=== PATIENT | female | born 1940 | race Caucasian/White ===

== ENCOUNTER 2017-10-04 00:46 | Inpatient (IN) | payer MEDICARE, OTHER ==
[~2017-10-04] VITALS: Ht 162.6 cm; Wt 60.3 kg
[~2017-10-04 00:46] MED LIST: (None)10 MG OR; ALPHAGAN IR; ASPIRIN325 MG OR; BUMETANIDE1 MG PO; BUTALBITAL/APAP1 CAP PO; CEFUROXIME AXE500 MG PO; CITRACAL + D3 MAXIMU PO; CLINORIL150 MG OR; COSOPT1 ML OP; D31000 UNIT PO; DIGOXIN0.25 MG PO; EFFEXOR37.5 MG PO; ELIQUIS5 MG PO; FOLIC ACID1 MG PO; LEVETIRACETAM1000 MG PO; LEVETIRACETAM500 M1 PO; LEVOTHROID88 MCG PO; LEVOTHYROXIN88 MC1 PO; LORTAB 5/3255 MG PO; LUMIGAN0.01 % OP; MEGESTROL AC20 MG PO; METOPROL TAR25 MG PO; OMEPRAZOLE20 M2 PO; OMEPRAZOLE20 MG PO; SYNTHROID100 MCG OR; SYNTHROID100 MCG PO; TIMOLOL 0.25%5 ML OP; TRAVATAN Z0.004 % OP; VENTOLIN HF1 IN; VITAMIN B-12500 MCG PO
--- NOTE | 2017-10-04 00:48 | NUR ---
PATIENT TO ROOM 12 VIA EMS STRETCHER. PATIENT UNDRESSED INTO A GOWN. TRIAGE COMPLETED AT BEDSIDE. AWAITING MD NOONAN.
[2017-10-04] MEDS ORDERED: ADLT ASA LOW81 MG PO (01:24)
[2017-10-04] MEDS ORDERED: ZONEGRAN100 M1 PO (01:24)
[2017-10-04] MEDS ORDERED: LEVOTHYROXIN88 MC1 PO (01:25)
[2017-10-04] MEDS ORDERED: ZESTRIL10 MG PO (01:26)
[2017-10-04] MEDS ORDERED: REMERON15 MG PO (01:27)
[2017-10-04] MEDS ORDERED: LEVETIRACETAM500 MG PO (01:27)
[2017-10-04] MEDS ORDERED: ZYLOPRIM100 MG PO (01:28)
[2017-10-04] MEDS ORDERED: FOLIC ACID1 MG PO (01:28)
[2017-10-04] MEDS ORDERED: TRAZODONE50 MG PO (01:29)
[2017-10-04] MEDS ORDERED: XALATAN 0.005%2.5 ML OU (01:29)
--- NOTE | 2017-10-04 01:33 | NUR ---
LABS DRAWN AND SENT, IV ESTABLISHED, MONITORING INITIATED. RTM OBTAINING ABG
[2017-10-04 01:54] LABS: HEMATOCRIT 26.8 % (37.0-47.0); HEMOGLOBIN 8.5 g/dl (12.0-16.0); IMMATURE GRANULOCYTES 0.3 % (0.0-1.0); MEAN CELL VOLUME 98.5 fL CALC (80.0-100.0); MEAN CORPUSCULAR HGB 31.3 pG CALC (26.0-32.0); MEAN CORPUSCULAR HGB CONC 31.7 g/L CALC (32.0-36.0); NEUT# 4.56 thou/uL (2.00-7.15); RED BLOOD COUNT 2.72 mill/uL (4.20-5.60); RED CELL DISTRI WIDTH 14.3 % (11.5-15.5)
[2017-10-04 02:01] LABS: ALBUMIN 3.9 g/dL (3.2-5.0); ALKALINE PHOSPHATASE 55 u/l (38-126); BILIRUBIN, TOTAL 0.6 mg/dL (0.0-1.4); BUN 68 mg/dL (8-23); CHLORIDE 118 mmol/l (95-108); SGOT/AST 25 u/l (9-36); SGPT/ALT 16 u/l (11-66); SODIUM 146 mmol/l (137-146); TOTAL PROTEIN 7.2 g/dL (6.3-8.2)
[2017-10-04 02:02] LABS: ANION GAP 22 (6-22 (CALC)); BUN/CREATININE RATIO 17 (12-20 (CALC)); GFR 11 ML/MIN (>=60 (CALC)); GFR FOR AFR.AMER. 13 ML/MIN (>=60 (CALC)); INFLUENZA A NONE DETECTED (NONE DETECT); INFLUENZA B NONE DETECTED (NONE DETECT); POTASSIUM 5.7 mmol/l (3.5-5.1)
[2017-10-04 02:03] LABS: CARBON DIOXIDE 12 mmol/l (22-30)
[2017-10-04 02:14] LABS: MYOGLOBIN 89 ng/mL (0 - 62)
--- NOTE | 2017-10-04 02:34 | NUR ---
DR DAILEY IN ROOM ATTEMPTING TO GET ABG
--- NOTE | 2017-10-04 03:20 | NUR ---
Admission Note Report Given to: KENAN CERVANTES Transported by: Wheelchair X Stretcher Transported with: X Nurse Transporter X Patent IV O2 X Benefit Specialist
--- NOTE | 2017-10-04 03:30 | NUR ---
PT ARRIVED TO FLOOR VIA STRETCHER WITH ER STAFF. PT ORIENTED TO ROOM AND CALL LIGHT SYSTEM. RESP EVEN AND UNLABORED; NO DISTRESS NOTED. TELE IN PLACE. ABD SOFT; HYPERACTIVE BOWEL SOUNDS NOTED. PEDAL PULSES PALPATED BIALT. IV RFA PATENT; FLUSHED WITHOUT DIFFICULTY. PT ALERT TO SELF; PT REORIENTED NEEDED. EXPRESSIVE APHASIA NOTED. PT ENCOURAGED TO CALL FOR ASSISTANCE; SAFETY PRECAUTIONS REINFORCED. BED ALARM IN PLACE FOR SAFETY. CALL LIGHT WITHIN REACH.
[2017-10-04 03:50] VITALS: BP 147/71
[2017-10-04 04:21] LABS: C. DIFFICILE TOXIN A&B NEGATIVE (NEGATIVE)
--- NOTE | 2017-10-04 04:30 | NUR ---
RESP EVEN AND UNLABORED; NO DISTRESS NOTED. TELE IN PLACE. BED ALARM IN PLACE FOR SAFETY. CALL LIGHT WITHIN REACH. IV PATENT; NO REDNESS OR EDEMA NOTED.
--- NOTE | 2017-10-04 07:00 | NUR ---
SHIFT CHANGE REPORT FROM BILLY, PT AWAKE AND ALERT SITTING UP ON BSC AT THIS TIME, DENIES PAIN, REFUSED MEAL STATING SHE IS TIRED AND WANTS TO RETURN TO BED, SETTLED IN BED, CALL BROWN IN REACH.
--- NOTE | 2017-10-04 07:15 | NUR ---
PT ASSISTED X2 TO BEDSIDE COMMODE PT HAD X2 MOD LOOSE BM, PT WAS ASKED IF SHE WANTS TO SIT UP IN THE RECLINER PT STATED THAT SHE'S VERY TIRED AND WANTS TO REST.
[2017-10-04 08:12] VITALS: BP 143/66
[2017-10-04 11:17] VITALS: BP 136/77
--- NOTE | 2017-10-04 12:00 | NUR ---
REPORT RECEIVED FROM JOHN IN ED, PT ARRIVED ON UNIT @ 1200, ALERT AND ORIENTED X 4, STANSFERRED FROM STRETCHER TO SCALE TO BED, ORIENTED TO ROOM AND CALL BROWN. DENIES PAIN/DISCOMFORT, WILL CONTINUE TO MONITOR.
--- NOTE | 2017-10-04 12:40 | NUR ---
PT LYING IN BED, REFUSING TO EAT STATING SHE IS UNABLE TO EAT SHE IS HAVING PAIN ALL OVER. DR TOLEDO NOTIFIED, WROTE ORDERS.
[2017-10-04 15:19] VITALS: BP 128/69
--- NOTE | 2017-10-04 19:20 | NUR ---
REPORT RECIEVED; PT WOKE TO SPEECH. RESP EVEN AND UNLABORED. PLAN OF CARE DISCUSSED. SAFETY PRECAUTIONS REINFORCED. CALL LIGHT WITHIN REACH.
[2017-10-04 20:09] LABS: URINE BILIRUBIN - DIPSTICK NEGATIVE (NEGATIVE); URINE BLOOD DIPSTICK SMALL (NEGATIVE); URINE COLOR YELLOW; URINE GLUCOSE - DIPSTICK NEGATIVE (NEGATIVE); URINE KETONE NEGATIVE (NEGATIVE); URINE PROTEIN - DIPSTICK 30 mg/dL (NEG-TRACE); URINE UROBILINOGEN - DIPSTICK 0.2 E.U./dL (0.2)
[2017-10-04 20:10] VITALS: BP 123/71
[2017-10-04 20:13] LABS: URINE CLARITY CLOUDY; URINE LEUK ESTERASE SMALL (NEGATIVE); URINE NITRITE - DIPSTICK POSITIVE (Negative)
--- NOTE | 2017-10-04 20:30 | NUR ---
PT WOKE FOR ASSESSMENT; RESP EVEN AND UNLABORED. TELE IN PLACE. ABD SOFT; ACTIVE BOWEL SOUNDS NOTED. PEDAL PULSES PALPATED BILAT. NEW IV PLACED IN RIGHT UPPER FOREARM #22 BY BULK MAIL CLERK. PT ORIENTED TO PERSON. SAFETY PRECAUTIONS REINFORCED. FREQUENT ROUNDS MADE. CALL LIGHT WITHIN REACH. PT ENCOURAGED TO CALL FOR ASSISTANCE.
[2017-10-04 20:50] LABS: URINE BACTERIA MANY hpf; URINE SQUAMOUS EPITHELIAL CELL FEW EPI/hpf (0-FEW)
--- NOTE | 2017-10-05 00:15 | NUR ---
RESP EVEN AND UNLABORED; NO DISTRESS NOTED. TELE IN PLACE. IV PATENT; NO REDNESS OR EDEMA NOTED. CALL LIGHT WITHIN REACH.
[2017-10-05 00:40] VITALS: BP 120/66
--- NOTE | 2017-10-05 04:07 | NUR ---
PT DENIES PAIN. TELE IN PLACE. IV PATENT; NO REDNESS OR EDEMA NOTED. CALL LIGHT WITHIN REACH.
[2017-10-05 04:10] VITALS: BP 124/74
[2017-10-05 04:34] LABS: MAGNESIUM 1.2 mg/dL (1.6-2.3)
[2017-10-05 05:52] LABS: CREATININE 3.1 mg/dL (0.5-1.0)
[2017-10-05 05:53] LABS: ALBUMIN 2.7 g/dL (3.2-5.0); POTASSIUM 4.3 mmol/l (3.5-5.1)
--- NOTE | 2017-10-05 07:18 | NUR ---
SHIFT CHANGE REPORT FROM BILLY PT SLEEPING IN LEFT SIDE-LYING POSITION, BREATHING EVEN AND NON-LABORED, IVF INFUSING, NO SIGN DISCOMFORT, CALL BROWN IN REACH.
[2017-10-05 07:43] VITALS: BP 151/55
[2017-10-05 10:47] VITALS: BP 134/50
--- NOTE | 2017-10-05 12:00 | NUR ---
APPETITE REMAINS VERY POOR AND ORAL INTAKE MINUTE, OFFERED MANY DIFFERENT DRINK/SNACKS BUT ALWAYS GIVES A REASON FOR REFUSING SUCH ENSURE TOO SWEET OR DOES NOT LIKE WHATS OFFERED BUT WILL NOT GIVE A CHOICE OF ANYTHING SHE LIKES. SHE REFUSES TO SIT UP IN RECLINER ALSO, WILL CONTINUE TO MONITOR.
[2017-10-05 14:42] VITALS: BP 137/62
--- NOTE | 2017-10-05 16:00 | NUR ---
RESTING IN BED, ASSISTED WITH ELIMINATION NEEDS, ACCEPTED ORANGE JUICE AND DRANK 120CC, WILL CONTINUE TO MONITOR.
--- NOTE | 2017-10-05 19:30 | NUR ---
PATIENT RESTING IN BED AT THIS TIME-STATES THAT SHE IS FEELING VERY BAD. STILL HAVING DIARRHEA. NEW IV SITE STARTED TO LEFT FOREARM-#22 GAUGE WITH GOOD BLOOD REETURN. D5 WITH BICARB INFUSING AT 100CC/HR ORDERED. SAFETY PRECAUTIONS REINFORCED. CALL LIGHT IN REACH. WILL CONT TO MONITOR.
[2017-10-05 19:50] VITALS: BP 137/73
--- NOTE | 2017-10-05 20:02 | NUR ---
DR TOLEDO CONTACTED ABOUT MG LEVEL, ADVISED TO HAVE RENAL ADDRESS THAT SITUATION. DR DANG CALLED AND STATED HE HAD ALREADY ORDERED 2GM MG BUT THAT WAS NOT FOUND ON OCT BUT WAS RECORDED IN PROGRESS NOTES. HE NOW ORDERED 2 GMS MG IV.
[2017-10-06] VITALS (13 sets, daily range): BP systolic 109–145; BP diastolic 50–93
--- NOTE | 2017-10-06 | NUR ---
LORI APPEARS SLEEPING AT THIS TIME POSITIONED ON HER SIDE. IVF PATENT AND INFUSING AT 100CC/HR VIA LEFT FOREARM SITE. CALL LIGHT IN REACH. WILL CONT TO MONITOR.
--- NOTE | 2017-10-06 05:00 | NUR ---
PATIENT RESTING IN BED AT THIS TIME-APPEARS SLEEPING WITH EYES CLOSED AND POSITIONED ON HER SIDE. CALL LIGHT IN REACH. WILL CONT TO MONITOR.
[2017-10-06 05:22] LABS: ALBUMIN 2.2 g/dL (3.2-5.0); CREATININE 2.8 mg/dL (0.5-1.0); POTASSIUM 3.5 mmol/l (3.5-5.1)
[2017-10-06 05:25] LABS: MAGNESIUM 1.9 mg/dL (1.6-2.3)
--- NOTE | 2017-10-06 07:32 | NUR ---
REPORT RECEIVED FROM KENAN SYLVESTER. PT SLEEPING AT THIS TIME. CALL LIGHT WITHIN REACH.
--- NOTE | 2017-10-06 08:17 | NUR ---
PT ON LEFT LATERAL POSITION IN BED. REPORTS ACHING ALL OVER. REPORTING OF CONCERNS ENCOURAGED. PLAN OF CARE DISCUSSED. FALL PRECAUTIONS REINFORCED. CALL LIGHT REVIEWED AND IN REACH. BED ALARM SET FOR SAFETY. PT STATES UNDERSTANING.
--- NOTE | 2017-10-06 12:00 | NUR ---
PT ATE 90% OF LUNCH TRAY. STATES "THIS IS THE BEST ROBERT FELT IN DAYS". DENIES PAIN. NO NAUSEA. WILL CONTINUE TO MONITOR.
--- NOTE | 2017-10-06 14:00 | NUR ---
PT SLEEPING AT THIS TIME. CALL LIGHT WITHIN REACH.
[2017-10-06 14:02] LABS: IMMATURE GRANULOCYTES 0.3 % (0.0-1.0); NEUT# 5.17 thou/uL (2.00-7.15); RED BLOOD COUNT 2.03 mill/uL (4.20-5.60); RED CELL DISTRI WIDTH 14.1 % (11.5-15.5)
[2017-10-06 14:09] LABS: HEMATOCRIT 19.7 % (37.0-47.0); HEMOGLOBIN 6.3 g/dl (12.0-16.0)
--- NOTE | 2017-10-06 15:00 | NUR ---
TELEPHONE CONSENT OBTAINED FOR BLOOD TRANSFUSION FROM KRISTEN, PT'S DAUGHTER AND POA.
--- NOTE | 2017-10-06 15:30 | NUR ---
16FR ESCOBAR CATHETER INSERTED BY STERILE TECHNQIUE PER ORDER R/T STRCIT I&O. 200 ML CLEAR YELLOW URINE OUTPUT ON INSERTION.
--- NOTE | 2017-10-06 16:48 | NUR ---
1ST UNIT OF [RBC'S STARTED AT THIS TIME. VSS. TUBE TESTER AT BEDSIDE PER PROTOCOL.
--- NOTE | 2017-10-06 17:46 | NUR ---
1HR TRANSFUSION VS STABLE. NO COMPLAINTS AT THIS TIME. WILL CONTINUE TO MONITOR.
--- NOTE | 2017-10-06 19:40 | NUR ---
REPORT RECEIVED FROM KENAN ROSE;PT RESTING IN SEMI FOWLERS POSITION;INTRODUCED SELF TO PT AND POC DISCUSSED;SMALL LOOSE/BROWN BM NOTED TO BED;CHEYANNE CARE PROVIDED AND PT POSITIONED ON BEDSIDE COMMODE WITH 1 PERSON ASSIST;FRESH GOWN AND LINENS APPLIED;1ST UNIT OF PRBC'S COMPLETED,PT TOLERATED WELL;WILL CONTINUE TO MONITOR
--- NOTE | 2017-10-06 21:45 | NUR ---
#22G TO LEFT FOREARM FOUND OCCLUDED;IV SITE REMOVED WITH CATHETER INTACT AND NEW #22G TO LAC STARTED BY ARLETTERN;ASSESSMENT COMPLETED;RESPIRATIONS EVEN AND UNLABORED ON 02 @ 2L VIA NC;ABDOMEN SOFT ON PALPATION;WEAK PEDAL PULSES;ESCOBAR CATHETER PATENT DRAINING YELLOW URINE,LEG STRAP IN PLACE;PT VOICES NO COMPLAINTS AT THIS TIME;TELE MONITOR IN PLACE;PT ENCOURAGED TO DISCUSS CONCERNS;2ND UNIT OF PRBC'S STARTED;PT RE-EDUCATED ON S/S OF TRANSFUSION REACTIONS AND VERBALIZES UNDERSTANDING;WRITTER TO REMAIN AT BEDSIDE
--- NOTE | 2017-10-06 22:02 | NUR ---
VS OBTAINED;PT VOICES NO COMPLAINTS OF PAIN OR DISCOMFORTS;RESPIRATIONS EVEN AND UNLABORED;PT ENCOURAGED TO CALL FOR ASSISTANCE IF NEEDED;CALL LIGHT IN REACH;WILL CONTINUE TO MONITOR
--- NOTE | 2017-10-06 22:46 | NUR ---
PT APPEARS TO BE SLEEPING IN SUPINE POSITION;VS OBTAINED;PT TOLERATING TRANSFUSION WELL;WILL CONTINUE TO MONITOR
[2017-10-07] VITALS (7 sets, daily range): BP systolic 131–164; BP diastolic 58–89
--- NOTE | 2017-10-07 00:50 | NUR ---
2ND UNIT OF PRBC'S COMPLETED AT THIS TIME;VS OBTAINED;#22G TO LAC INFUSING NS @ 100ML/HR NOW;PT VOICES NO COMPLAINTS OR CONCERNS;FALL PRECAUTIONS IN PLACE;WILL CONTINUE TO MONITOR
--- NOTE | 2017-10-07 05:05 | NUR ---
PT APPEARS TO BE SLEEPING IN SUPINE POSITION;WOKE PT TO ADMINISTER SCHEDULED MEDICATION;RESPIRATIONS EVEN AND UNLABORED ON O2;PT DENIES ANY NEEDS AT THIS TIME;IV SITE PATENT;TELE MONITOR IN PLACE;WILL CONTINUE TO MONITOR
[2017-10-07 06:37] LABS: IMMATURE GRANULOCYTES 0.4 % (0.0-1.0); MEAN CELL VOLUME 92.1 fL CALC (80.0-100.0); MEAN CORPUSCULAR HGB 30.6 pG CALC (26.0-32.0); MEAN CORPUSCULAR HGB CONC 33.2 g/L CALC (32.0-36.0); NEUT# 6.03 thou/uL (2.00-7.15); RED BLOOD COUNT 3.17 mill/uL (4.20-5.60); RED CELL DISTRI WIDTH 15.4 % (11.5-15.5)
[2017-10-07 06:46] LABS: HEMATOCRIT 29.2 % (37.0-47.0); HEMOGLOBIN 9.7 g/dl (12.0-16.0)
[2017-10-07 06:56] LABS: CREATININE 2.5 mg/dL (0.5-1.0); MAGNESIUM 1.6 mg/dL (1.6-2.3); POTASSIUM 3.9 mmol/l (3.5-5.1)
--- NOTE | 2017-10-07 08:00 | NUR ---
PT RESTIGN INBED WITH IVF INFUSING AT PRESCRIBED RATE, PT ALERT BUT CONFUSED WITH SOME EXPRESSIVE APHASIA NOTED, SPEECH GARBLED AT TIMES AND OTHER TIMES CLEAR, PT EMOTIONAL AT TIMES STAING TEARY EYED "I DON'T KNOW HOW MUCH LONGER I CAN KEEP DOING THIS" EMOTIONAL SUPPORT PROVIDED, AM ASSESSMENT COMPLETED SEE INTERVENTIONS, SKIN INTACT, ESCOBAR CATH IN PLACE WITH CATH STRAP SECURE, URINE YELLOW WITH SOME SEDIMENT NOTED, ABD SOFT AND BS ACTIVE, PT TOLERATING FULL LIQUID DIET WITH NO S/S OF ASPIRATION BUT PT HAS POOR APPETITE NOTED THIS AM, DECLINES WANTING ANYTHING AT THIS TIME, SAFETY MEASURES REINFORCED, CALL BROWN WITHIN REACH, WILL CONTINUE TO MONITOR.
--- NOTE | 2017-10-07 11:06 | NUR ---
PT RESTING IN BED, REPOSITIONS SELF FOR COMFORT, CALL BROWN WITHIN REACH,TOOK AM MEDICATIONS IN PUDDING ADN TOLERATED WELL, ATE 75% OF PUDDING AFTER CEMENTING MACHINE OPERATOR COMPLETE, CALLBELL WITHIN REACH
--- NOTE | 2017-10-07 11:14 | NUR ---
OOB TO CHAIR WITH CREATIVE ART DIRECTOR ASSIST TOLERATED ACTIVITY WELL.
--- NOTE | 2017-10-07 13:50 | NUR ---
PT ASSISTED BACK TO BED EARLIER BY PIPE FITTER STREET SERVICE, COMFORT MEASURES PROVIDED, CALL BROWN WITHIN REACH
--- NOTE | 2017-10-07 14:48 | NUR ---
DAUGHTER CALLED EARLIER THIS AM FOR UPDATE, PT RESTIGN WITH EYES CLOSED AT THIS TIME, NO S/S OF IDSTRESS OR DISCOMFORT NOTED, CLAL BROWN WITHIN REACH.
--- NOTE | 2017-10-07 17:14 | NUR ---
PT DOZING INBED INTERMITTENLY, NO S/S OF DISTRESS OR DICSOMFORT NOTED, CALL BROWN WITHIN REACH, IVF CONTINUE AT KVO, RATE CHANGED EARLIER BY MD AT BEDSIDE, WILL CONTINUE TO MONITOR.
--- NOTE | 2017-10-07 19:12 | NUR ---
PT RESTING IN BED WITH EYES CLOSED, NO SIGNS OF DISTRESS NOTED. RESP EVEN AND UNLABORED. 02 3L NC, IV INFUSING WITHOUT DIFFICULTIES. CALL LIGHT IN REACH, BED ALARM X1, CONTINUE TO MONITOR.
--- NOTE | 2017-10-08 00:17 | NUR ---
PT RESTING IN BED WITH EYES CLOSED, NO SIGNS OF DISTRESS NOTED, RESP EVEN AND UNLABORED. CALL LIGHT IN REACH,CONTINUE TO MONITOR.
[2017-10-08 04:22] VITALS: BP 154/77
--- NOTE | 2017-10-08 07:00 | NUR ---
RECEIVED BEDSIDE REPORT FROM CASPER GONZALEZ. RESTING IN SEMI FOWLERS WITH EYES OPEN. RESPS EVEN AND UNLABORED ON O2 VIA NC, TELE MONITOR IN PLACE. #22 LAC INFUSING WITHOUT DIFFICULTY, TELE MONITOR IN PLACE. VOICES NO NEEDS AT THIS TIME. PLAN OF CARE DISCUSSED. SAFETY PRECAUTIONS REINFORCED. BED ALARM ON FOR SAFETY. BED IN LOWEST POSITION WITH WHEELS LOCKED. CALL LIGHT WITHIN REACH. ENCOURAGED PT TO CALL FOR ANY NEEDS.
[2017-10-08 07:01] LABS: HEMATOCRIT 30.8 % (37.0-47.0); HEMOGLOBIN 9.9 g/dl (12.0-16.0); MEAN CELL VOLUME 94.5 fL CALC (80.0-100.0); MEAN CORPUSCULAR HGB 30.4 pG CALC (26.0-32.0); MEAN CORPUSCULAR HGB CONC 32.1 g/L CALC (32.0-36.0); RED BLOOD COUNT 3.26 mill/uL (4.20-5.60); RED CELL DISTRI WIDTH 15.9 % (11.5-15.5)
[2017-10-08 07:32] VITALS: BP 152/56
--- NOTE | 2017-10-08 07:45 | NUR ---
PT UP TO CHAIR PER FLASH DEVELOPER. PT ATE 50% OF MEAL WHICH WAS A FULL LIQUID. CALL BROWN IN REACH.
--- NOTE | 2017-10-08 09:30 | NUR ---
FASHION DIRECTOR PUT PT BACK TO BED PER PT REQUEST. PT WAS TOLD BY FASHION DIRECTOR THAT SHE WILL GET BACK UP AT LUNCH TIME TO EAT IN THE CHAIR. PT UNDERSTANDS VERY WELL AND APPROPIRATE TODAY.
[2017-10-08 11:00] VITALS: BP 153/70
--- NOTE | 2017-10-08 12:00 | NUR ---
SITTING IN BEDSIDE CHAIR EATING LUNCH. RESPS EVEN AND UNLABORED ON O2 VIA NC, TELE MONITOR IN PLACE. #22 LAC INFUSING WITHOUT DIFFICULTY, SITE APPEARS HEALTHY. VOICES NO NEEDS AT THIS TIME. CALL LIGHT WITHIN REACH. WILL CONTINUE TO MONITOR.
[2017-10-08] MEDS ORDERED: CIPROFLOXACN250 MG PO (12:51)
--- NOTE | 2017-10-08 13:30 | NUR ---
ESCOBAR REMOVED WITH 350 CC YELLOW URINE IN BAG, 10CC IN BALLOON. PT TOLERATED WITHOUT DIFFICULTY.
--- NOTE | 2017-10-08 14:00 | NUR ---
IV site discontinued, cath intact. No edema , no redness, voices no discomfort.
--- NOTE | 2017-10-08 14:10 | NUR ---
Discharge instructions given. Patient verbalizes understanding of same. Discharged in stable condition via Wheelchair to [facility] with *Other. All belongings sent with pt. TO [facility]IA MEDICAL TRANSPORT
== END 2017-10-08 14:11 | DRG 871 ==
LOC: ED 00:46 → ED-I 02:00 → ED 02:58 → MS2 02:59
PROVIDERS: Emergency Medicine; Internal Medicine; Internal Medicine Nephrology; Nurse Practitioner Family; ADMIT Internal Medicine; ATTEND Internal Medicine
PROC: 30233N1 Transfusion of Nonautologous Red Blood Cells into Peripheral Vein, Percutaneous Approach (ICD-10-PCS; principal; 2017-10-06)
PROC: 30233N1 Transfusion of Nonautologous Red Blood Cells into Peripheral Vein, Percutaneous Approach (ICD-10-PCS; 2017-10-06)
PROC: 0T9B70Z Drainage of Bladder with Drainage Device, Via Natural or Artificial Opening (ICD-10-PCS; 2017-10-06)
DX: A41.9 Sepsis, unspecified organism (principal); G93.41 Metabolic encephalopathy; N18.4 Chronic kidney disease, stage 4 (severe); I48.91 Unspecified atrial fibrillation; N17.9 Acute kidney failure, unspecified; E87.2 Acidosis; E83.39 Other disorders of phosphorus metabolism; E83.42 Hypomagnesemia; E86.0 Dehydration; E87.5 Hyperkalemia; R64 Cachexia; N39.0 Urinary tract infection, site not specified; R65.20 Severe sepsis without septic shock; D64.9 Anemia, unspecified; E86.9 Volume depletion, unspecified; F03.90 Unspecified dementia, unspecified severity, without behavioral disturbance, psychotic disturbance, mood disturbance, and anxiety; F32.9 Major depressive disorder, single episode, unspecified; G47.00 Insomnia, unspecified; K21.9 Gastro-esophageal reflux disease without esophagitis; M10.9 Gout, unspecified; R19.7 Diarrhea, unspecified; I12.9 Hypertensive chronic kidney disease with stage 1 through stage 4 chronic kidney disease, or unspecified chronic kidney disease; B96.89 Other specified bacterial agents as the cause of diseases classified elsewhere; Z85.038 Personal history of other malignant neoplasm of large intestine; Z86.73 Personal history of transient ischemic attack (TIA), and cerebral infarction without residual deficits; Z68.20 Body mass index [BMI] 20.0-20.9, adult
CPT/HCPCS: J0692; J1756; P9016

== ENCOUNTER 2018-05-05 18:55 | Inpatient (IN) | payer MEDICARE, OTHER ==
[~2018-05-05] VITALS: Ht 162.6 cm; Wt 46.0 kg
[~2018-05-05 18:55] MED LIST changes: +ADLT ASA LOW81 MG PO; +CIPROFLOXACN250 MG PO; +KETOCONAZOLE2 % TOP; +LEVETIRACETAM500 MG PO; +REMERON15 MG PO; +TRAZODONE50 MG PO; +XALATAN 0.005%2.5 ML OU; +ZESTRIL10 MG PO; +ZONEGRAN100 M1 PO; +ZYLOPRIM100 MG PO
--- NOTE | 2018-05-05 19:09 | NUR ---
PT. TO ROOM 9 VIA EMS WITH C/O FALLING ON 05/03/18 TAKEN FOR X-RAY ON 05/04/18 X-RAY STATING RIGHT FEMOR FX. PER [facility]. RIGHT LOWER EXT DEFORMITY NOTED, TOES TO RIGHT FOOT ARE PINK WARM AND MOVEABLE WITH GOOD CAPILLARY REFILL < 2 SEC. PT. CRYING IN PAIN. 100 MG FENTAYL GIVEN PER EMS.
--- NOTE | 2018-05-05 19:30 | NUR ---
PT. APPEARS MORE RELAXED AT THIS TIME, NO WHIMPERING IN PAIN. PT. DISORIENTED TO TIME AND PLACE, UNABLE TO REORIENT.
[2018-05-05] MEDS ORDERED: MELATONIN3 MG PO (19:33)
[2018-05-05 19:36] LABS: HEMOGLOBIN 11.2 g/dl (12.0-16.0); IMMATURE GRANULOCYTES 0.6 % (0.0-5.0); MEAN CORPUSCULAR HGB 32.9 pG CALC (26.0-32.0); NEUT# 4.82 thou/uL (2.00-7.15); RED BLOOD COUNT 3.4 mill/uL (4.20-5.60); RED CELL DISTRI WIDTH 14.4 % (11.5-15.5)
[2018-05-05 19:37] LABS: MEAN CELL VOLUME 102.9 fL CALC (80.0-100.0)
[2018-05-05] MEDS ORDERED: LEXAPRO10 MG PO (19:37)
[2018-05-05] MEDS ORDERED: FLONASE AL50 MCG/ACT (19:40)
[2018-05-05] MEDS ORDERED: TYLENOL325 MG PO (19:42)
[2018-05-05 19:47] LABS: CREATININE 2.8 mg/dL (0.5-1.0); POTASSIUM 4.9 mmol/l (3.5-5.1)
[2018-05-05 20:17] LABS: PROTHROMBIN TIME 10.7 SECONDS (9.0-12.5)
[2018-05-05 20:30] LABS: URINE BILIRUBIN - DIPSTICK NEGATIVE (NEGATIVE); URINE BLOOD DIPSTICK NEGATIVE (NEGATIVE); URINE COLOR YELLOW; URINE GLUCOSE - DIPSTICK NEGATIVE (NEGATIVE); URINE KETONE NEGATIVE (NEGATIVE); URINE LEUK ESTERASE NEGATIVE (Negative); URINE NITRITE - DIPSTICK NEGATIVE (Negative); URINE PROTEIN - DIPSTICK >=300 mg/dL (NEG-TRACE); URINE SPECIFIC GRAVITY >=1.030; URINE UROBILINOGEN - DIPSTICK 0.2 E.U./dL (0.2)
[2018-05-05 20:31] LABS: URINE CLARITY HAZY
[2018-05-05 20:42] LABS: URINE AMORPH SEDIMENT MODERATE hpf (NONE-FEW); URINE RBC 0-2 RBC/hpf (0-5); URINE SQUAMOUS EPITHELIAL CELL MANY EPI/hpf (0-FEW); URINE WBC 0-2 WBC/hpf (0-5)
--- NOTE | 2018-05-05 20:50 | NUR ---
CARDIZEM 20 MG IVP ORDERED, ONLY GAVE 10 PER HR 82 AFTER 10 ML GIVEN, MD AWARE.
--- NOTE | 2018-05-05 21:08 | NUR ---
Admission Note Report Given to: BRANDON GRAYSON Transported by: Wheelchair X Stretcher Transported with: X Nurse Transporter X Patent IV X O2 X Wine Consultant
--- NOTE | 2018-05-05 21:08 | NUR ---
PT. TAKEN TO [place] FLOOR VIA STRETCHER.
[2018-05-05 21:11] LABS: TSH, 3RD GENERATION 0.9 uIU/mL (0.47 - 4.68)
--- NOTE | 2018-05-05 21:14 | NUR ---
ESCOBAR BAG EMPTIED OF 1300 CC OF IRINA URINE.
[2018-05-05 21:20] VITALS: BP 96/59
--- NOTE | 2018-05-05 21:20 | NUR ---
PT TO ROOM 271 VIA STRETCHER ACCOMPANIED BY ER STAFF. PT A MAXIMUM TRANSFER X3 TO BED. PT CRYING OUT IN PAIN. PT IS ALERT AND ORIENTED TO SELF ONLY. REORIENTATION UNSUCCESSFUL. PT MEDICATED FOR PAIN PER MD ORDERS AND PER OCT. NOTIFIED DR HAMMER THAT PT WAS ADMITTED AND MORE ORDERS WERE RECEIVED. ESCOBAR DRAINING CLEAR YELLOW URINE. IV PATENT X1. PER ER NRSE DANIEL 1300 OUT OF ESCOBAR IN ER. RIGHT LEG IS SHORTENED AND EXTERNALLY ROTATED. DOPPLER REQUIRED FOR PULSE OF RIGHT FOOT. FOOT COOL TO TOUCH. UNABLE TO ASSESS IF PATIENT HAS SENSATION DUE TO DEMENTIA. CALL LIGHT IN REACH. WILL CONTINUE TO MONITOR. BED ALARM PLACED ON PATIENT DUE TO CONFUSION.
[2018-05-05 22:36] VITALS: BP 131/71
--- NOTE | 2018-05-05 23:31 | NUR ---
PT RESTING IN BED WITH EYES CLOSED. RESP ARE EVEN AND UNLABORED. NO DISTRESS NOTED. CALL LIGHT IN REACH. WILL CONTINUE TO MONITOR.
[2018-05-05 23:59] VITALS: BP 128/70
[2018-05-06] VITALS (15 sets, daily range): BP systolic 96–146; BP diastolic 47–79
--- NOTE | 2018-05-06 03:33 | NUR ---
PT RESTING IN BED WITH EYES CLOSED. RESP ARE EVEN AND UNLABORED. NO DISTRESS NOTED. CALL LIGHT IN REACH. WILL CONTINUE TO MONITOR.
--- NOTE | 2018-05-06 06:00 | NUR ---
ER CALLED AND STATED THAT PT IS IN AFIB RVR. RT NOTIFIED FOR STAT EKG. VS OBTAINED. BP 105/47. HR 119. ER REPORTS THAT PT HR IS 120-130. NOTIFIED DR HAMMER FOR ORDERS. ORDERS OBTAINED TO TRANSFER PT TO ICU.
--- NOTE | 2018-05-06 06:45 | NUR ---
PT TRANSFERRED TO ICU VIA BED ACCOMPANIED BY THIS PRODUCER ARBORIST MANAGER AND NIKKI ALFARO. BEDSIDE REPORT GIVEN TO KOLTON GRAYSON.
--- NOTE | 2018-05-06 06:53 | NUR ---
PT ARRIVED FROM MSU BY STRETCHER. PT AWAKE, ALERT TO SELF ONLY. ARRIVED WITH #20 IV IN RAC and CATH ESCOBAR DRAINING CLEAR YELLOW URINE. PT SPEAKING WITH "NORMAL SPEECH", CONFUSED. PT TRANSFERED TO ER FOR AFIB RVR, PT HAS HX OF AFIB. PT ADMITTED FOR RIGHT HIP FRACTURE, RIGHT LEG SHORTENED AND EXTERNALLY ROTATED. COLOR/TEMP SAME LEFT FOOT. GOOD CAP REFILL, DOPPLER NEEDED FOR PULSE ON RIGHT FOOT. PT MEDICATED FOR PAIN/NAUSEA CLINICAL DATA ANALYST.
--- NOTE | 2018-05-06 07:20 | NUR ---
DR HAMMER CALLED TO CHECK IN ON PT. NO ORDERS FOR MEDICATIONS AT THIS TIME. PT CURRENTLY SLEEPING.
--- NOTE | 2018-05-06 08:16 | NUR ---
PT REQUESTING LIGHTS DIMMED IN ROOM. BED ALARM ON FOR CONFUSED PT. DOOR & CURTAINS OPENED.
--- NOTE | 2018-05-06 08:30 | NUR ---
DR HAMMER & REY GARCIAP @BEDSIDE WITH PT; ASSESSING PT.
--- NOTE | 2018-05-06 08:51 | NUR ---
PER DR HAMMER, OR NOTIFIED THAT PT IS NOT STABLE FOR SURGERY TODAY. [facility] WILL CONTACT DR GOMEZ.
--- NOTE | 2018-05-06 08:55 | NUR ---
ALETA FROM PHARMACY HERE TO DOUBLE CHECK MED REC FROM [facility].
--- NOTE | 2018-05-06 08:57 | NUR ---
TONIE FROM [facility] TO CHECK ON PTS STATUS.
[2018-05-06] MEDS ORDERED: ANTI-DIARRHEAL2 M1 PO (09:21)
[2018-05-06] MEDS ORDERED: MILK OF MA2400 MG/10 PO (09:23)
--- NOTE | 2018-05-06 10:45 | NUR ---
PT SLEEPING IN BED, NO S/S OF DISTRESS. WILL CONTINUE TO MONITOR.
--- NOTE | 2018-05-06 11:09 | NUR ---
ANA GARCIA @BEDSIDE WITH PT
--- NOTE | 2018-05-06 11:18 | NUR ---
PTS DAUGHTER, NIR, CALLED FOR INFORMATION ON MOM. DAUGHTER INFORMED THAT WE CAN NOT RELEASE INFORMATION OVER THE PHONE. DAUGHTER BECAME VERY ANGRY, BEING RUDE & FOUL MOUTHED WITH THIS RN. DAUGHTER FINALLY, STATED THAT SHE "ONLY LIVES 5 MINS AWAY AND WILL BE UP HERE SOME TIME TODAY".
--- NOTE | 2018-05-06 12:06 | NUR ---
DR DANG @BEDSIDE WITH PT.
--- NOTE | 2018-05-06 12:20 | NUR ---
PT REFUSED LUNCH WHEN I TRIED TO FEED IT TO HER. PT REQUESTING DRINKS. PT REPOSITIONED, SLIGHTLY OFF RIGHT HIP TO LEFT SIDE. PT MEDICATED FOR PAIN.
--- NOTE | 2018-05-06 12:42 | NUR ---
DR MENDOZA @BEDSIDE WITH PT.
--- NOTE | 2018-05-06 13:49 | NUR ---
PER ANA GARCIA, PTS EYES ARE ALWAYS PINK & PUFFY, DUE TO RELATIONSHIP WITH PT AT [facility]. PTS CODE STATUS IS DNR IN COMPUTER & ON MAR FROM [facility] BUT NO DNR IN FOLDER. PT SLEEPING IN BED. 2L O2 NC. PT PICKS AT PULSE OX THUS GETTING UNRELIABLE DATA. PT IS 100% 02 [address]UL[address] OX IN PLACE PROPERLY.
--- NOTE | 2018-05-06 14:11 | NUR ---
PT REPOSITIONED. CURRENTLY SLEEPING. WILL CONTINUE TO MONITOR.
--- NOTE | 2018-05-06 16:06 | NUR ---
DAUGHTER IN UNIT, VERY RUDE TO STAFF. DAUGHTER UPSET BC WE DO NOT HAVE A COPY OF POA PAPERWORK THAT STATES SHE IS POA. DAUGHTER MYERS [facility] FOR COPY OF POA PAPERWORK. STATES THEY WILL FAX OVER PAPER. MALE WITH DAUGHTER EDUCATED US ON PTS CONFUSION.
--- NOTE | 2018-05-06 16:22 | NUR ---
DAUGTHER & MALE LEFT ICU TO GO TO [facility] TO GET A COPY OF POA & DNR AFTER NOT RECVING FAX FROM THEIR STAFF. THEY DID NOT WANT TO WAKE SLEEPING PT. NO FAX RECVD YET FROM [facility].
--- NOTE | 2018-05-06 16:56 | NUR ---
PT/MALE CAME BACK WITH POA PAPERWORK & DNR, COPIES MADE. PT/MALE EDUCATED ON TEST RESULTS & POC. THEY "HOPE THEY CAN DO THE SURGERY SOON THEY CAN". THEY DIDNT WANT TO WAKE PT SO THEY LEFT AND WILL CALL BACK LATER.
--- NOTE | 2018-05-06 17:05 | NUR ---
PER OR, DR GOMEZ'S OFFICE HAS PT SCHEDULED FOR SURGERY THIS FRIDAY @1200.
--- NOTE | 2018-05-06 17:21 | NUR ---
JESSEE STATES SHE CANT TAKE HER MACHINE UP TO THIS FLOOR AND I FEEL IT WOULD BE PAINFUL TO TRANSFER PT DOWNSTAIRS IN BED DUE TO HIP FRACTURE. [employer] WILL CALL DR HAMMER NOW.
--- NOTE | 2018-05-06 18:40 | NUR ---
REPORT FROM Carolin CARDONA RN. ASSUMED PT. CARE.
--- NOTE | 2018-05-06 19:45 | NUR ---
PT. FOUND RESTING WITH EYES CLOSED IN NO DISTRESS. PT. AROUSABLE TO LIGHT VERBAL/TACTILE STIMULI. ORIENTED X 0. PT. DOES RESPOND TO HER NAME HOWEVER. SKIN COLD AND PALE. TEMP 98.8. RESPS EVEN AND UNLABORED. BP SLIGHTLY LOW. PT. IN A-FIB WITH RATE IN THE 110'S, A-FIB. PT. STATES WITH PAIN, BUT ABLE TO RATE WITH A NUMBER. LUNGS CTA. BOWEL SOUNDS PRESENT THROUGHOUT. NO EDEMA NOTED. IV FLUIDS INFUSING AT 100 CC/HR. PT. REPOSITIONED FOR COMFORT TO LT. SIDE. RT. LOWER EXT SHORTENING AND ROTATION NOTED. PEDAL PULSES WEAK. RADIAL PULSES INTACT. CALL LIGHT WITHIN REACH. WILL CONTINUE TO MONITOR.
--- NOTE | 2018-05-06 21:30 | NUR ---
PT. MEDICATED PER PYSICIAN ORDERS. IV FLUIDS CONTINUE TO INFUSE WITHOUT SX OF INFILTRATION OR EXTRAVASATION. WILL ATTEMPT TO CHANGE IV IN THE AM FOR BLOOD DRAW. PT. APPEARS WITH LIMITED VENOUS ACCESS. EMS IV REMAINS INTACT AND WITHOUT SIGNS OF REDNESS OR SWELLING TO RT. FOREARM. CALL LIGHT REMAINS WITHIN REACH.
--- NOTE | 2018-05-06 22:15 | NUR ---
PT. REPOSITIONED SUPINE FOR COMFORT. REMAINS A-FIB WITH RATE IN THE 90-100 RANGE WITH PVC'S. BP STABLE, SLIGHTLY LOW. CALL LIGHT REMAINS WITHIN REACH.
[2018-05-07] VITALS (15 sets, daily range): BP systolic 80–116; BP diastolic 46–66
--- NOTE | 2018-05-07 00:05 | NUR ---
PT. REPOSITIONED TO LT. SIDE FOR COMFORT. KEEPING PATIENT OFF RT. SIDE SINCE THAT IS THE SIDE OF FRACTURE. VSS. REMAINS AFEBRILE. CONTINUES IN A-FIB.
--- NOTE | 2018-05-07 02:00 | NUR ---
PT. REPOSITIONED FOR COMFORT. RESTING WITH EYES CLOSED IN NO DISTRESS. REMAINS EASILY AROUSABLE. PT. CONTINUES IN A-FIB IN THE 90-110'S. VOICES NO COMPLAINTS OR NEEDS AT THIS TIME.
--- NOTE | 2018-05-07 03:24 | NUR ---
PT. RESTING IN BED WITH EYES CLOSED, SLOW EVEN RESPIRATIONS. SKIN REMAINS COLD AND PALE. ESCOBAR CATHETER REMAINS PATENT AND DRAINING CLEAR YELLOW URINE. REMAINS IN A-FIB WITH RATE IN THE 100'S.
[2018-05-07 05:20] LABS: HEMATOCRIT 31.4 % (37.0-47.0); HEMOGLOBIN 9.6 g/dl (12.0-16.0); IMMATURE GRANULOCYTES 1.9 % (0.0-5.0); MEAN CELL VOLUME 107.9 fL CALC (80.0-100.0); MEAN CORPUSCULAR HGB CONC 30.6 g/L CALC (32.0-36.0); NEUT# 3.32 thou/uL (2.00-7.15); RED BLOOD COUNT 2.91 mill/uL (4.20-5.60)
[2018-05-07 05:33] LABS: ALBUMIN 2.6 g/dL (3.2-5.0); CREATININE 3.1 mg/dL (0.5-1.0); POTASSIUM 4.9 mmol/l (3.5-5.1)
--- NOTE | 2018-05-07 07:30 | NUR ---
PT LETHARGIC, ONLY RESPONDING TO REPOSTIONING WHICH WAS CAUSING HER PAIN. ASSESMENT COMPLETED AT THIS TIME (SEE INTERVENTIONS). LUNG SOUNDS CLEAR BILATERALLY. HR SOUNDS IRREGULAR RATE 100 ON THE MONITOR. #20 IN THE RFA INFUSING WELL. FREE FROM REDNESS OR EDEMA. #20 IN LFA FLUSHES WELL. NO EDEMA NOTED. BOWEL SOUNDS ACTIVE. WILL CONTINUE TO MONITOR.
--- NOTE | 2018-05-07 08:40 | NUR ---
JOSE WOOD HEEL FLAP RUBBER IN TO SEE PT AT THIS TIME. UNABLE TO AROUSE PT WITH VERBAL STIMULI AND CLAPPING OF HANDS. PT RESPONDS WITH PAIN STIMULI ONLY WITH GRIMCES ONLY. JOSE TO PUT IN ORDERS.
--- NOTE | 2018-05-07 08:45 | NUR ---
@1250 NARCAN ADMINISTERED PER ORDER. PT CURRENTLY HAVING SEIZURE LIKE ACTIVITY LASTING APPROX 90 SECONDS. JOSE LEONARD AWARE.
--- NOTE | 2018-05-07 09:00 | NUR ---
BIPAP INITIATED BY RT, SEE FLOWSHEET FOR SETTINGS. SATS AT 100%. LEVOPHED INITIATED PER PROTOCOL. 0900 MEDS HELD R/T CURRENT SEVERITY OF ILLNESS. JOSE PEREZ AWARE.
--- NOTE | 2018-05-07 09:05 | NUR ---
JOSE SPOKE WITH DAUGHTER REGARDING CURRENT STATUS AND PLAN OF CARE.
--- NOTE | 2018-05-07 09:25 | NUR ---
JOSE SPOKE WITH DAUGHTER AGAIN REGARDING PROGNOSIS, PLAN OF CARE, AND COMFORT.
--- NOTE | 2018-05-07 09:40 | NUR ---
AFTER SPEAKING WITH JOSE PEREZ, DAUGHTER NIR RAMIREZ PROVIDES PHONE CONFIRMATION TO THIS NURSE STOP CURRENT TREATMENT PLAN AND PROVIDE COMFORT MEASURE ONLY. PER DAUGHTER WHEN SOMETHING HAPPENS TO PT WE ARE TO CONTACT [employer].
--- NOTE | 2018-05-07 09:45 | NUR ---
BIPAP REMOVED AND LEVOPHED STOPPED AT THIS TIME. O2 PLACED AT 2L VIA NC.
--- NOTE | 2018-05-07 10:15 | NUR ---
PT RESTING WITH EYES CLOSED. NO S/S OF DISTRESS OR DISCOMFORT. REMAINS MILDLY HYPOTENSIVE. SEE INTERVENTIONS.
--- NOTE | 2018-05-07 10:22 | NUR ---
BIPAP STANDBY PER FAMILY FOR COMFORT. PT ON 2L NC.
--- NOTE | 2018-05-07 11:30 | NUR ---
PT REMAINS RESTING COMFORTABLY. NO S/S OF DISTRESS OR DISCOMFORT.
--- NOTE | 2018-05-07 12:00 | NUR ---
SPOKE WITH HOSPICE VIA TELEPHONE, PER JOSE PEREZ FAMILY IS AGREEABLE TO HAVE HOSPICE ON BOARD FOR COMFORT.
--- NOTE | 2018-05-07 12:33 | NUR ---
FAMILY ARRIVES TO SEE PT. STAY WAS BRIEF. WILL RETURN AT 2PM FOR HOSPICE MEETING. PT RESTING QUIETLY.
--- NOTE | 2018-05-07 14:10 | NUR ---
HOSPICE CURRENTLY MEETING WITH FAMILY.
--- NOTE | 2018-05-07 14:45 | NUR ---
DAUGHTER LEAVING AT THIS TIME WITH HOSPICE NURSE TO TOUR HOSPICE HOUSE.
--- NOTE | 2018-05-07 17:45 | NUR ---
SPECIAL [employer]ICE OFFICER AND NIKKI JONES BATHED PT PRIOR TO TRANSPORT CHECKED FOR BOWEL MOVEMENT, ESCOBAR CARE GIVEN.
--- NOTE | 2018-05-07 18:05 | NUR ---
PT DISCHARCHED VIA STRECHER WITH [facility] TO [facility]. MEDICATED EARLIER TO PROVIDE COMFORT DURING TRANSPORT. DAUGHTER KRISTEN NOTIFIED OF TRANSPORT BY HOSPICE NURSE VIA TELEPHONE.
== END 2018-05-07 18:05 | disposition hospice, inpatient (51) | DRG 536 ==
LOC: ED 18:55 → ED-I 19:20 → ED 19:20 → ED-I 20:10 → ED 20:45 → MS2 20:46 → ICU 20:46
PROVIDERS: Emergency Medicine; Family Medicine; Internal Medicine Nephrology; Nurse Practitioner Family; ADMIT Internal Medicine; ATTEND Internal Medicine
PROC: 0T9B70Z Drainage of Bladder with Drainage Device, Via Natural or Artificial Opening (ICD-10-PCS; principal; 2018-05-05)
PROC: 5A09357 Assistance with Respiratory Ventilation, Less than 24 Consecutive Hours, Continuous Positive Airway Pressure (ICD-10-PCS; 2018-05-07)
DX: S72.001A Fracture of unspecified part of neck of right femur, initial encounter for closed fracture (principal); N18.4 Chronic kidney disease, stage 4 (severe); Z68.1 Body mass index [BMI] 19.9 or less, adult; E46 Unspecified protein-calorie malnutrition; N17.9 Acute kidney failure, unspecified; E87.2 Acidosis; E87.0 Hyperosmolality and hypernatremia; N25.81 Secondary hyperparathyroidism of renal origin; R57.9 Shock, unspecified; R06.89 Other abnormalities of breathing; I12.9 Hypertensive chronic kidney disease with stage 1 through stage 4 chronic kidney disease, or unspecified chronic kidney disease; I48.2 Chronic atrial fibrillation; D63.1 Anemia in chronic kidney disease; F03.90 Unspecified dementia, unspecified severity, without behavioral disturbance, psychotic disturbance, mood disturbance, and anxiety; E03.9 Hypothyroidism, unspecified; E86.9 Volume depletion, unspecified; I25.10 Atherosclerotic heart disease of native coronary artery without angina pectoris; K21.9 Gastro-esophageal reflux disease without esophagitis; G40.909 Epilepsy, unspecified, not intractable, without status epilepticus; F32.9 Major depressive disorder, single episode, unspecified; I69.921 Dysphasia following unspecified cerebrovascular disease; W06.XXXA Fall from bed, initial encounter; Y92.129 Unspecified place in nursing home as the place of occurrence of the external cause; Z85.038 Personal history of other malignant neoplasm of large intestine; Z86.011 Personal history of benign neoplasm of the brain; E55.9 Vitamin D deficiency, unspecified; Z51.5 Encounter for palliative care; Z66 Do not resuscitate